=== PATIENT | male | born 1965 | race Caucasian/White ===

== ENCOUNTER 2019-05-07 09:02 | Observation (INO) | payer OTHER, BC ==
[~2019-05-07] VITALS: Ht 188 cm; Wt 84.4 kg
[2019-05-07] MEDS ORDERED: SODIUM CHLORIDE 0.9% 1,000 ML IV SCH (09:23)
[2019-05-07 09:49] VITALS: BP 131/86
[2019-05-07] MEDS ORDERED: PLEASE ENTER ALLERGIES MC SCH (10:00)
[2019-05-07] MEDS: PLEASE ENTER HEIGHT AND WEIGHT MC SCH ×2 (10:00→18:00)
[2019-05-07] MEDS ORDERED: PLEASE ENTER HEIGHT AND WEIGHT MC SCH (10:00)
[2019-05-07] MEDS ORDERED: DILT240C PO (10:02)
[2019-05-07] MEDS ORDERED: MOME13HF INH (10:02)
[2019-05-07] MEDS ORDERED: MIDAZOLAM 1 MG/ML, 5ML ONE ×2 (10:02→11:16)
[2019-05-07] MEDS ORDERED: TIOT4MIS5 INH (10:02)
[2019-05-07] MEDS ORDERED: COLC0.6T37 PO (10:02)
[2019-05-07] MEDS ORDERED: MONT10TA9 PO (10:02)
[2019-05-07] MEDS ORDERED: OMEP40CA6 PO (10:02)
[2019-05-07] MEDS ORDERED: ASPI81TA45 PO (10:02)
[2019-05-07] MEDS ORDERED: AZEL205.2 NAS (10:02)
[2019-05-07] MEDS ORDERED: FEXO180T72 PO (10:02)
[2019-05-07] MEDS ORDERED: MOME17SP INH (10:02)
[2019-05-07] MEDS ORDERED: ISOPROTERENOL 0.2MG/ML, 5ML ONE (10:02)
[2019-05-07] MEDS ORDERED: ADENOSINE 6 MG/2 ML ONE (10:02)
[2019-05-07] MEDS ORDERED: ATOR40TA78 PO (10:02)
[2019-05-07] MEDS ORDERED: LEVA15HF5 INH (10:02)
[2019-05-07] MEDS ORDERED: FENTANYL PF 100 MCG/2ML ONE ×2 (10:02→11:16)
[2019-05-07] MEDS ORDERED: Testosterone TD (10:02)
[2019-05-07] MEDS ORDERED: FEBU40TA PO (10:02)
[2019-05-07] MEDS ORDERED: DIPHENHYDRAMINE 50 MG/ML, 1ML ONE (11:07)
[2019-05-07] MEDS ORDERED: ZOLPIDEM 5MG TABLET PO PRN (12:00)
[2019-05-07] MEDS ORDERED: COLCHICINE 0.6 MG TABLET PO PRN (12:00)
[2019-05-07] MEDS ORDERED: ACETAMINOPHEN 325 MG TABLET PO PRN (12:00)
[2019-05-07] MEDS ORDERED: ONDANSETRON 2MG/ML, 2ML ONE (14:42)
[2019-05-07] MEDS ORDERED: ONDANSETRON 2MG/ML, 2ML IVPush ONE (15:00)
[2019-05-07 16:27] VITALS: BP 104/70
[2019-05-07] MEDS ORDERED: ALBUTEROL SULFATE 2.5 MG/3 ML NPPB PRN (17:00)
[2019-05-07 20:33] VITALS: BP 109/67
[2019-05-07] MEDS: ATORVASTATIN 40 MG TABLET PO SCH (21:00)
[2019-05-07] MEDS ORDERED: BUDESONIDE 0.5 MG/2 ML INHA NPPB SCH (21:00)
[2019-05-07] MEDS: AZELASTINE HCL NAS SCH (21:00)
[2019-05-07] MEDS: ALBUTEROL/IPRATROPIUM 2.5MG/0.5MG, 3 ML NPPB SCH (21:00)
[2019-05-08] MEDS: PLEASE ENTER HEIGHT AND WEIGHT MC SCH ×2 (02:00→10:17)
[2019-05-08 02:13] VITALS: BP 115/64
[2019-05-08] MEDS: ALBUTEROL/IPRATROPIUM 2.5MG/0.5MG, 3 ML NPPB SCH (03:00)
[2019-05-08 06:38] VITALS: BP 110/70
[2019-05-08] MEDS: TESTOSTERONE TD SCH (07:24)
[2019-05-08] MEDS: AZELASTINE HCL NAS SCH ×2 (08:01→20:35)
[2019-05-08] MEDS: OMEPRAZOLE 20 MG CAPSULE.DR PO SCH (08:26)
[2019-05-08] MEDS: DILTIAZEM 240 MG CAP.ER.24H PO SCH (08:26)
[2019-05-08] MEDS: ASPIRIN 81 MG TABLET EC PO SCH (08:26)
[2019-05-08] MEDS: LORATADINE 10 MG TABLET PO SCH (08:26)
[2019-05-08] MEDS: MONTELUKAST 10 MG TABLET PO SCH (08:27)
[2019-05-08] MEDS ORDERED: FEBUXOSTAT 40 MG TABLET PO SCH (09:00)
[2019-05-08] MEDS: FLUTICASONE NASAL SPRAY 16GM NAS SCH (10:16)
[2019-05-08] MEDS ORDERED: MIDAZOLAM 1 MG/ML, 2ML ONE (11:16)
[2019-05-08] MEDS ORDERED: FENTANYL PF 250 MCG/5ML ONE (11:16)
[2019-05-08] MEDS ORDERED: LIDOCAINE 1%, 20ML ONE (12:08)
[2019-05-08] MEDS ORDERED: PROPOFOL 10 MG/ML, 20ML ONE ×2 (14:03)
[2019-05-08] MEDS ORDERED: SUCCINYLCHOLINE 20 MG/ML, 10ML ONE (14:03)
[2019-05-08] MEDS ORDERED: HEPARIN 1,000 UNITS/ML, 10ML ONE ×3 (14:03)
[2019-05-08] MEDS ORDERED: DEXAMETHASONE 4 MG/ML, 1ML ONE (14:03)
[2019-05-08] MEDS ORDERED: ROCURONIUM 10MG/ML,5ML ONE (14:03)
[2019-05-08] MEDS ORDERED: ONDANSETRON 2MG/ML, 2ML ONE (14:03)
[2019-05-08] MEDS ORDERED: ZOLPIDEM 5MG TABLET PO PRN (14:30)
[2019-05-08] MEDS ORDERED: APIXABAN 5 MG TABLET ONE (14:59)
[2019-05-08] MEDS ORDERED: MEPERIDINE/PF 25MG/0.5ML IVPush PRN (15:00)
[2019-05-08] MEDS ORDERED: ONDANSETRON ODT 8 MG PO PRN (15:00)
[2019-05-08] MEDS ORDERED: MORPHINE SULFATE 4 MG/ML, 1ML IVPush PRN (15:00)
[2019-05-08] MEDS ORDERED: PROMETHAZINE 25 MG/ML, 1ML IV PRN (15:00)
[2019-05-08] MEDS ORDERED: ACETAMINOPHEN 325 MG TABLET PO PRN (15:00)
[2019-05-08] MEDS ORDERED: DIPHENHYDRAMINE 50 MG/ML, 1ML IVPush PRN (15:00)
[2019-05-08] MEDS ORDERED: MIDAZOLAM 1 MG/ML, 2ML IV PRN (15:00)
[2019-05-08] MEDS ORDERED: FENTANYL PF 100 MCG/2ML IV PRN (15:00)
[2019-05-08] MEDS ORDERED: EPHEDRINE 50 MG/ML, 1ML IM PRN (15:00)
[2019-05-08] MEDS ORDERED: ONDANSETRON 2MG/ML, 2ML IV PRN (15:00)
[2019-05-08] MEDS ORDERED: OXYcodone 5 MG/5 ML ORAL.SOL UDC PO PRN (15:00)
[2019-05-08] MEDS ORDERED: DIAZEPAM 5 MG/ML, 2ML IVPush PRN (15:00)
[2019-05-08] MEDS ORDERED: EPHEDRINE 50 MG/ML, 1ML IVPush PRN (15:00)
[2019-05-08] MEDS: APIXABAN 5 MG TABLET PO SCH (15:14)
[2019-05-08] MEDS: ONDANSETRON 2MG/ML, 2ML IVPush PRN ×2 (17:49→20:37)
[2019-05-08] MEDS: ACETAMINOPHEN 325 MG TABLET PO PRN (18:44)
[2019-05-08 18:57] VITALS: BP 106/69
[2019-05-08] MEDS: DULERA INH SCH (20:35)
[2019-05-08] MEDS: ATORVASTATIN 40 MG TABLET PO SCH (20:36)
[2019-05-08] MEDS ORDERED: APIXABAN 5 MG TABLET PO ONE (21:00)
[2019-05-09 00:56] VITALS: BP 111/71
[2019-05-09 02:00] VITALS: BP 144/80
[2019-05-09] MEDS: ACETAMINOPHEN 325 MG TABLET PO PRN (04:16)
[2019-05-09 07:30] VITALS: BP 123/75
[2019-05-09 07:53] VITALS: BP 118/75
[2019-05-09] MEDS: LORATADINE 10 MG TABLET PO SCH (07:55)
[2019-05-09] MEDS: OMEPRAZOLE 20 MG CAPSULE.DR PO SCH (07:55)
[2019-05-09] MEDS: ASPIRIN 81 MG TABLET EC PO SCH (07:55)
[2019-05-09] MEDS: DILTIAZEM 240 MG CAP.ER.24H PO SCH (07:55)
[2019-05-09] MEDS: APIXABAN 5 MG TABLET PO SCH (07:55)
[2019-05-09] MEDS: FLUTICASONE NASAL SPRAY 16GM NAS SCH (07:55)
[2019-05-09] MEDS: MONTELUKAST 10 MG TABLET PO SCH (07:55)
[2019-05-09] MEDS: DULERA INH SCH (07:57)
[2019-05-09] MEDS: TESTOSTERONE TD SCH (07:58)
[2019-05-09] MEDS: AZELASTINE HCL NAS SCH (07:58)
[2019-05-09] MEDS ORDERED: SPIRIVA INH SCH (09:00)
[2019-05-09] MEDS ORDERED: ACET325T26 PO (09:08)
[2019-05-09] MEDS ORDERED: APIX5TAB PO (09:08)
== END 2019-05-09 11:33 | disposition home or self-care (01) ==
LOC: CACL 09:02 → ORIP 11:45 → 5SO 16:36 → DCLOUNGE 05-09 11:10
PROVIDERS: ADMIT Internal Medicine Cardiovascular Disease; ATTEND Internal Medicine Cardiovascular Disease
DX: I48.91 Unspecified atrial fibrillation (principal); I48.92 Unspecified atrial flutter; D68.59 Other primary thrombophilia; E78.5 Hyperlipidemia, unspecified; I47.1 Supraventricular tachycardia; J45.909 Unspecified asthma, uncomplicated; M10.9 Gout, unspecified; Z79.82 Long term (current) use of aspirin; Z79.899 Other long term (current) drug therapy; Z79.01 Long term (current) use of anticoagulants
CPT/HCPCS: 85347; 93005; 93306; 93308; 93312; 93321; 93325; 93613; 93621; 93653; 96374; 96376; 99156; 99157; C1730; C1766; C1894; C2630; G0378; J0330; J1100; J1200; J1644; J2250; J2405; J2704; J3010; J3490; J0153

== ENCOUNTER 2021-02-25 06:20 | Day surgery (SDC) | payer OTHER, BC ==
[~2021-02-25] VITALS: Ht 190.5 cm; Wt 77.3 kg
[~2021-02-25 06:20] MED LIST: ACET325T26 PO; APIX5TAB PO; ASPI81TA45 PO; ATOR40TA78 PO; AZEL205.2 NAS; COLC0.6T37 PO; DILT240C81 PO; FEBU40TA PO; FEXO180T72 PO; LEVA15HF5 INH; MOME13HF INH; MOME17SP INH; MONT10TA17 PO; OMEP40CA42 PO; TIOT4MIS5 INH; Testosterone TD
[2021-02-25] MEDS ORDERED: SODIUM CHLORIDE 0.9% 1,000 ML IV ONE (07:00)
[2021-02-25 07:08] VITALS: BP 105/83
[2021-02-25] MEDS ORDERED: ASPI81TA45 PO (07:17)
[2021-02-25 07:23] LABS: ANION GAP 5 mmol/L (5-15); CALCIUM 8.6 mg/dL (8.5-10.1); CHLORIDE 111 mmol/L (98-107); CREATININE 0.84 mg/dL (0.7-1.3)
[2021-02-25] MEDS ORDERED: APIXABAN 5 MG TABLET ONE (07:26)
[2021-02-25 07:32] LABS: INTERNATIONAL NORMALIZED RATIO 1.02 (0.93-1.1); PROTHROMBIN TIME 10.9 Seconds (9.6-11.5)
[2021-02-25] MEDS ORDERED: APIX5TAB PO (07:49)
[2021-02-25] MEDS ORDERED: PROPOFOL 10 MG/ML, 20ML ONE (07:55)
== END 2021-02-25 08:48 | disposition home or self-care (01) ==
LOC: CACL 06:20
PROVIDERS: ATTEND Internal Medicine Cardiovascular Disease
DX: I48.4 Atypical atrial flutter (principal); I08.1 Rheumatic disorders of both mitral and tricuspid valves; E78.5 Hyperlipidemia, unspecified; J45.909 Unspecified asthma, uncomplicated; Z20.822 Contact with and (suspected) exposure to COVID-19; Z79.01 Long term (current) use of anticoagulants; Z79.82 Long term (current) use of aspirin; Z79.899 Other long term (current) drug therapy; Z88.0 Allergy status to penicillin; Z91.013 Allergy to seafood
CPT/HCPCS: 36415; 80048; 85610; 87635; 92960; 93005; 93312; 93321; 93325; J2704